=== PATIENT | male | born 1950 | race Caucasian/White ===

== ENCOUNTER → 2016-07-25 | Day surgery (SDC) | payer OTHER ==
[~2016-07-25] MED LIST: ACETAMINOPHEN 1000 MG/100 ML VIAL IV ONE; ACETYLCHOLINE CHL OPHT SOLN 1:100 2 ML VIAL ONE; BUPIVACAINE/EPINEPHRINE 0.25% PF 10 ML VIAL ONE; KETOROLAC TROMETHAMINE 30 MG/ML (IVP) VIAL IV PUSH ONE; LACTATED RINGER'S 1000 ML INJ 1,000 ML ONE; MIDAZOLAM HCL 2 MG/2 ML VIAL ONE; ONDANSETRON HCL 4 MG/2 ML VIAL IV PUSH ONE; PROPOFOL 200 MG/20 ML AMP IV ONE; ceFAZolin 2 GM PREMIX 50 ML ONE
--- NOTE | 2016-07-25 14:27 | TN ---
cc: BUFFY SEALS M.D. DATE OF SURGERY 07/25/2078 PREOPERATIVE DIAGNOSIS Bilateral inguinal hernia. POSTOPERATIVE DIAGNOSIS Bilateral inguinal hernia. PROCEDURE Laparoscopic repair bilateral inguinal hernia with mesh. SURGEON Dr. Buffy Seals COTTRELL OPERATOR Gisele Cantu, DEVELOPMENT EXPERT ANESTHESIA General. INDICATIONS This is a very pleasant gentleman who complains of a burning discomfort in the right groin that presented after he worked in the yard for a few hours. It has recurred, sometimes it presents itself and sometimes it does not. He had a history of constipation and he strains to move his bowels and thinks this may have contributed to his hernia as well. Physical examination demonstrated bilateral inguinal hernias, larger on the right than the left. INTRAOPERATIVE FINDINGS Right direct inguinal hernia defect, left indirect inguinal hernia defect. Small bilateral spermatic cord lipomas. ESTIMATED BLOOD LOSS Less than five ml. DESCRIPTION OF PROCEDURE IN DETAIL The patient identified as Reji Nagy, taken to the operating room and placed in the supine position. Sequential compression devices were placed on bilateral lower extremities. Following induction of adequate general anesthesia the patient's lower abdomen was prepped and draped in usual sterile fashion with Betadine. A time-out procedure was performed. Following completion of time-out procedure to everyone's satisfaction within the room 0.5% Marcaine with epinephrine was placed at each incision site. Infraumbilical 2 cm midline incision was carried out with a scalpel and dissection continued posteriorly to the level of the anterior rectus fascia on the right side. It was incised on its medial border using a scalpel. The preperitoneal plane was developed with the surgeon's finger directed towards the pubic symphysis. With the patient in slight Trendelenburg position under direct laparoscopic view a preperitoneal balloon dissector was placed in the preperitoneal space and inflated to a total of approximately 35 pumps. This allowed for identification of Jordan's ligaments, inferior epigastric vessels and a direct hernia pseudo sac on the right. The balloon was desufflated, removed and a structural balloon trocar placed in preperitoneal space, its balloon inflated CO2 insufflation till a level 11 mmHg ensued. Using blunt graspers the herniated preperitoneal fat was reduced from the direct hernia pseudo sac. Direct hernia pseudo sac was tacked down to the anterior Jordan's ligament and blunt dissection lateral and posterior spermatic cord was performed. This allowed for identification of the small spermatic cord lipoma which was reduced from the inguinal canal to the preperitoneal space. Adherent peritoneum was reduced to the base of the spermatic cord using the blunt graspers. A 4 x 6 inch piece of [employer] ProLight mesh was cut from the anterolateral slip, placed around the spermatic cord and tacked into position with the ProTack device. Tacks were placed to approximate the anterolateral slit along the anterior border Jordan's ligament and superior border medial border of the mesh into x 6 inches piece of mesh was placed across the anterolateral slit and held into position with the tacks placed superolaterally and inferomedially. Care was taken to avoid tack placement inferolaterally to avoid cutaneous nerve injury. Attention was then turned to the left side. Similar blunt dissection ensued. Spermatic cord lipoma was reduced from the inguinal canal to the base of the spermatic cord and adherent peritoneum was reduced to the base of the spermatic cord using the blunt graspers. Photographs were taken of the indirect hernia defect. 4 x 6 inch piece of [employer]rium ProLight mesh was cut from the anterolateral slit, placed around the spermatic cord and tacked into position to capture device. Tacks were placed to approximate the anterolateral slit on the anterior border of Jordan's ligament and the superior medial mesh, 2 x 6 inch piece of mesh was placed across the anterolateral slit and held into position with the capture device, placing a tack inferior medial and superior lateral. Photographs were taken of the completed repair. All hernia sites were broadly covered with the mesh. No tacks were placed inferolaterally to avoid cutaneous nerve injury. Remaining local anesthetic was placed in the preperitoneal space and trocars were removed under direct visualization. The inferolateral mesh was held across with the graspers to ensure that the mesh stayed in the position it was placed. Trocars were removed under direct visualization. There was no evidence of bleeding from trocar sites. The preperitoneal space desufflated. The umbilical port was then removed. The anterior rectus fascial incision was closed with a running 2-0 Vicryl suture. Port site skin incisions were approximated with 4-0 Monocryl subcuticular sutures. Dressings were applied, Mastisol, half inch brown Steri-Strips. The patient tolerated the procedure without apparent complication. Sponge, needle and instrument counts were correct at the end of the case. The procedure was assisted by my nurse practitioner. Skill set of an DEVELOPMENT EXPERT was medically necessary to provide appropriate visualization laparoscopically and through the small incisions to facilitate efficiency in the completion of the procedure. The neurosurgical nurse was at the back table providing appropriate instrumentation while the nurse practitioner directly assisting me through the entirety of the procedure. MD EPHRAIM Epperson/NINFA /1:43 PM /2:15 PM
== END | disposition home or self-care (01) ==
LOC: ESDC 10:24
PROVIDERS: ATTEND Surgery Trauma Surgery
DX: K40.20 Bilateral inguinal hernia, without obstruction or gangrene, not specified as recurrent (principal); D17.6 Benign lipomatous neoplasm of spermatic cord
CPT/HCPCS: 00840; 49650; C1727; C1781; J0131; J0690; J1885; J2250; J2405; J3010; J7120